=== PATIENT | male | born 1995 | race African-American/Black ===

== ENCOUNTER → 2018-10-21 | Outpatient (CLI) | payer OTHER ==
[2018-10-21 17:30] LABS: HEMATOCRIT 43.7 % (42.0-52.0); HEMOGLOBIN 14.1 g/dl (13.5-17.5); MEAN CORPUSCULAR HGB CONC 32.3 g/dl (32.0-36.5); MEAN CORPUSCULAR VOLUME 86.9 fl (80.0-96.0); PLATELET COUNT, AUTOMATED 268 10^3/uL (150-450); RED BLOOD COUNT 5.03 10^6/uL (4.30-6.10); WHITE BLOOD COUNT 7.1 10^3/uL (4.0-10.0)
[2018-10-21 17:33] LABS: INR 1.24; PROTHROMBIN TIME 15.8 SECONDS (12.1-14.4)
[2018-10-21 17:34] LABS: PARTIAL THROMBOPLASTIN TIME 29.2 SECONDS (25.4-37.6)
[2018-10-21 17:51] LABS: BLOOD UREA NITROGEN 10 MG/DL (7-18); CALCIUM LEVEL 9.1 MG/DL (8.5-10.1); CARBON DIOXIDE LEVEL 29 MEQ/L (21-32); CHLORIDE LEVEL 105 MEQ/L (98-107); GLOMERULAR FILTRATION RATE > 60.0 (>60); GLUCOSE, FASTING 73 MG/DL (70-100); POTASSIUM SERUM 4.6 MEQ/L (3.5-5.1); SODIUM LEVEL 140 MEQ/L (136-145)
== END ==
LOC: M SMT 15:18
PROVIDERS: ATTEND Nurse Practitioner Family
DX: N47.1 Phimosis (principal); Z01.818 Encounter for other preprocedural examination

== ENCOUNTER 2018-11-02 06:14 | Day surgery (SDC) | payer OTHER ==
[~2018-11-02] VITALS: Ht 180.3 cm; Wt 83.0 kg
[2018-11-02] MEDS ORDERED: LR 1,000 ML IV ONE (07:00)
[2018-11-02] MEDS ORDERED: LIDOCAINE 2% INJ 100 MG/5 ML SDV (FOR ANES.) As Ordered ONE (07:01)
[2018-11-02] MEDS ORDERED: PROPOFOL 200 MG/20 ML VIAL As Ordered ONE (07:01)
[2018-11-02] MEDS ORDERED: dexameTHASONE 4 MG/ML 1ML VIAL (J1100) As Ordered ONE (07:01)
[2018-11-02] MEDS ORDERED: MIDAZOLAM INJ 2 MG/2 ML VIAL (J2250) As Ordered ONE (07:01)
[2018-11-02] MEDS ORDERED: fentaNYL 100 MCG/2 ML INJECTION (J3010) As Ordered ONE ×2 (07:01→08:22)
[2018-11-02] MEDS ORDERED: ONDANSETRON 4MG/2ML VIAL (J2405) As Ordered ONE (07:01)
[2018-11-02] MEDS ORDERED: BACITRACIN OINT 30GM As Ordered ONE (07:10)
[2018-11-02] MEDS ORDERED: NORCO, ANEXSIA 5/325MG TABLET (HYDROcodone/ACETAMINOPHEN) As Ordered ONE (09:01)
[2018-11-02] MEDS: fentaNYL 100 MCG/2 ML INJECTION (J3010) IV PRN ×2 (09:13→09:24)
[2018-11-02] MEDS ORDERED: NORCO, ANEXSIA 5/325MG TABLET (HYDROcodone/ACETAMINOPHEN) PO PRN (09:15)
[2018-11-02] MEDS ORDERED: LR 1,000 ML IV SCH (09:15)
[2018-11-02] MEDS ORDERED: PERCOCET 5MG/325MG TAB PO PRN (09:15)
[2018-11-02] MEDS ORDERED: ONDANSETRON 4MG/2ML VIAL (J2405) IV PRN (09:15)
--- NOTE | 2018-11-02 09:17 | ROOPDOC ---
[facility] Report Of Operation Report of Operation DATE OF PROCEDURE: 11/02/18 PREPROCEDURE DIAGNOSIS: Phimosis. POSTPROCEDURE DIAGNOSIS: Phimosis. OPERATIVE PROCEDURE: Circumcision. 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 ANESTHESIA: General OPERATIVE INDICATIONS: This is a 23-year-old male with phimosis making it difficult for him to retract his foreskin. He was brought to the operating room today for the above listed procedure. DESCRIPTION OF PROCEDURE: The patient was brought to the operating room and general anesthesia was induced. Prophylactic antibiotics were then infused. He was then placed in the supine position in preparation for the circumcision. At this point, circumcision incisions were made at the level of the coronal sulcus with the foreskin completely retracted downwards as well as on the outside of the foreskin with it pulled over the glans of penis. The circumcising incisions were then connected using electrocautery. All the foreskin in between the two incisions was then removed using electrocautery. Once that was done, hemostasis was obtained using electrocautery. Once satisfied with hemostasis, the remaining skin of the penile shaft was reapproximated to the glans using interrupted #2-0 chromic sutures. Once that was done, dressings were applied and this marked conclusion of procedure. The patient was then awakened from anesthesia and transported to recovery room in stable condition. ESTIMATED BLOOD LOSS: 20 mL COMPLICATIONS: None. SPECIMENS: Foreskin. PLAN: The patient will followup in clinic in a few weeks for a postoperative visit. MARIA DEL CARMEN WOLFE MD Nov 02, 2018 09:17
[2018-11-02 10:30] VITALS: BP 129/79
== END 2018-11-02 10:35 | disposition home or self-care (01) ==
LOC: M SDC 06:14 → EDUNIT# 15:45
PROVIDERS: ATTEND Urology
DX: N47.1 Phimosis (principal)
CPT/HCPCS: 54161; 88304; J0690; J1100; J2250; J2405; J3010